=== PATIENT | female | born 1995 | race Two or more races ===

== ENCOUNTER 2025-05-14 10:54 | Emergency (ER) | payer MEDICAID, SELFPAY ==
[2025-05-14 10:55] VITALS: BMI 47.0
[2025-05-14 11:03] VITALS: BP 159/91; PULSE 55; RESP 16; TEMP 36.6; O2SAT 100
--- NOTE | 2025-05-14 11:12 | XR_ITS ---
Examination: CT abdomen and pelvis without contrast. Coronal 3-D reconstructions. Sagittal 2-D reconstructions. Date and time of exam: May 14, 2025, 1335 hours INDICATIONS: Upper and lower abdominal pain with nausea beginning today CTDI: vol (mGy): 16.6 DLP: (mGycm): 1053 Technique: Axial images of the abdomen have been obtained, 3 mm slice thickness Intravenous contrast material has not been administered. Low dose protocols were performed. One or more of the following dose reduction techniques were used; automated exposure control, adjustment of the mA and/or KV according to patient size, use of iterative reconstruction technique. Findings: No focal liver lesions No gallstones Spleen is not enlarged No pancreatic or adrenal mass No renal or ureteral calculi, no hydronephrosis Aorta is not enlarged No bowel obstruction No diverticulitis Anteverted uterus Intact urinary bladder Absent appendix IMPRESSION: No renal or ureteral calculi, no hydronephrosis Absent appendix No bowel obstruction diverticulitis or free air
--- NOTE | 2025-05-14 11:12 | PD.EDRME ---
Rapid Medical Screening Exam E Arrival date/time: 05/14/25 10:54 30-year-old female presents to the emergency department today for complaint of abdominal pain and pelvic pain Chief Complaint: Abdominal Pain Vital signs: Vital Signs Temperature 97.8 F 05/14/25 11:03 Pulse Rate 55 L 05/14/25 11:03 Respiratory Rate 16 05/14/25 11:03 Blood Pressure 159/91 H 05/14/25 11:03 Pulse Oximetry (%) 100 05/14/25 11:03 Oxygen Delivery Method Room Air 05/14/25 11:03 Vital signs reviewed by provider: Yes Exam: On exam patient well-appearing does not appear ill or toxic no acute distress Clinical Impression: Lab work and imaging obtained
[2025-05-14 11:32] LABS: Basophils # (Auto) 0.1 Thou/mm3 (0.0-0.2); Basophils % (Auto) 1 % (0-2.5); Eosinophils # (Auto) 0.1 Thou/mm3 (0.0-0.5); Eosinophils % (Auto) 1 % (0-10); Hematocrit 45.5 % (36.0-46.0); Hemoglobin 15.7 g/dL (12.0-16.0); Immature Granulocytes Auto 0.04 Thou/mm3 (0.00-0.00); Lymphocytes # (Auto) 2.6 Thou/mm3 (1.0-4.8); Lymphocytes % (Auto) 20 % (10-50); Mean Corpuscular HGB Conc 34.5 g/dl (31.0-37.0); Mean Corpuscular Hemoglobin 31.4 pg (25.0-35.0); Mean Corpuscular Volume 91 fL (80-100); Monocytes # (Auto) 0.7 Thou/mm3 (0.0-0.8); Monocytes % (Auto) 6 % (0-12); Neutrophils # (Auto) 9.3 Thou/mm3 (1.8-7.7); Neutrophils % (Auto) 73 % (37-80); Nucleated Red Blood Cell # 0.00 Thou/mm3 (0.00-0.00); Nucleated Red Blood Cell % 0 /100 WBC (0); Platelet Count 292 Thou/mm3 (140-440); RDW Standard Deviation 41.6 fL (36.4-46.3); Red Blood Count 5.00 Miln/mm3 (4.00-5.20); White Blood Count 12.8 Thou/mm3 (3.6-11.0)
[2025-05-14 12:11] LABS: Alanine Aminotransferase 15 U/L (10-49); Albumin, Serum 5.1 gm/dL (3.5-5.0); Albumin/Globulin Ratio 1.8 (1.2-2.2); Alkaline Phosphatase 75 U/L (46-116); Anion Gap 9 (7-16); Aspartate Amino Transferase 20 U/L (0-34); BUN/Creatinine Ratio 10 Ratio (12-20); Bilirubin,Total 0.5 mg/dL (0.3-1.2); Blood Urea Nitrogen 8 mg/dL (9-23); Calcium 9.2 mg/dL (8.3-10.6); Calcium (Corrected) 9.2 mg/dL (8.5-10.1); Carbon Dioxide 26.4 mMol/L (20.0-31.0); Chloride 105 mMol/L (98-107); Creatinine (Component) 0.8 mg/dL (0.6-1.3); Estimated Creatinine Clearance 138.9 mL/min (>60); Globulin 2.8 gm/dL (2.3-3.5); Glucose 109 mg/dL (74-106); Lipase 35 U/L (12-53); Osmolality,Calculated 278 (275-295); Potassium 4.7 mMol/L (3.4-5.1); Sodium 140 mMol/L (136-145); Total Protein 7.9 gm/dL (5.7-8.2); eGFR > 60 See Note
--- NOTE | 2025-05-14 12:25 | PD.EDABDPN ---
ED Abdominal Pain RME/HPI General Chief Complaint: Abdominal Pain Stated complaint: LOWER ABD PAIN X3D Time seen by provider: 05/14/25 12:09 Arrival date/time: 05/14/25 10:54 30-year-old female patient came in for evaluation regarding pelvic pain. Patient told me that she is very irregular, it is hard for her to get , for the last 3 days she have vaginal bleeding, patient also told me that she has been having blood clots. She denies any chance of . She never been . She denies any dysuria vomiting fever or other complaints. No medication was taken prior to ER visit. RME / HPI RME / HPI narrative: 05/14/25 10:54 30-year-old female presents to the emergency department today for complaint of abdominal pain and pelvic pain Exam: On exam patient well-appearing does not appear ill or toxic no acute distress Impression: Lab work and imaging obtained Related Data Previous Rx's ?Medication ?Instructions ?Recorded ibuprofen 800 mg tablet 800 mg PO Q8H PRN pain #30 tabs 05/14/25 Allergies Allergy/AdvReac Type Severity Reaction Status Date / Time No Known Allergies Allergy Verified 05/14/25 10:58 Review of Systems Review of Systems Narrative Review of Systems: Review of system reviewed and within normal limits except mentioned in HPI ED Exam Narrative Physical exam: VITAL SIGNS: Reviewed. GENERAL APPEARANCE: Alert and interactive, follows commands, no acute distress, HEAD AND FACE: Non-traumatic. ENT: PERRL, pink conjunctivitis, eyelid no trauma, Mucous membrane moist. NECK: Supple, nontender, no nuchal rigidity. CHEST: No tenderness, no crepitus, no paradoxical movement, no retractions. LUNGS: Clear, well ventilated, symmetric, no rales, no wheezing, no ronchi, no stridor, good breath sounds bilaterally. HEART: Regular rate, regular rhythm, no murmur, no gallops. ABDOMEN: Soft, positive bowel sounds, nondistended, no guarding, nontender, no rebound, no masses, RECTAL: Deferred. GENITAL: Deferred. NEUROLOGICAL: Gross motor function intact sensory function intact, Appropriate for age. MUSCULOSKELETAL: low back nontender, full range of motion. EXTREMITIES: Nontender, full range of motion. SKIN: Color pink, dry, no rash, no lacerations, no abrasions, no contusions. LYMPHATICS: Deferred. Course Quality Measures none Orders Category Date Time Status CT abdomen pelvis wo con Stat Exams 05/14/25 11:12 Completed CBC Stat Lab 05/14/25 11:17 Completed Comprehensive Metabolic Panel Stat Lab 05/14/25 11:17 Completed HCG Qualitative,Urine Stat Lab 05/14/25 12:42 Completed Lipase Stat Lab 05/14/25 11:17 Completed UA, C/S IF [Urinalysis, C/S if Indicated] Stat Lab 05/14/25 12:42 Completed Urine Culture Stat Lab 05/14/25 12:42 Received HYDROcodone/APAP 10/325 [[place] 10/325] Med 05/14/25 12:24 Discontinued 1 tab PO X1 ONE Vital Signs Vital signs: Vital Signs Temperature 97.8 F 05/14/25 11:03 Pulse Rate 55 L 05/14/25 11:03 Respiratory Rate 16 05/14/25 11:03 Blood Pressure 159/91 H 05/14/25 11:03 Pulse Oximetry (%) 100 05/14/25 11:03 Oxygen Delivery Method Room Air 05/14/25 11:03 Abdominal Pain MDM MDM Narrative MDM Narrative:: 05/14/25 10:54 30-year-old female patient came in for evaluation regarding pelvic pain. Patient told me that she is very irregular, it is hard for her to get , for the last 3 days she have vaginal bleeding, patient also told me that she has been having blood clots. She denies any chance of . She never been . She denies any dysuria vomiting fever or other complaints. No medication was taken prior to ER visit. Patient CBC showed leukocytosis 12.8 no sign of anemia. CMP unremarkable. Urinalysis hematuria no UTI CT scan of the abdomen pelvis came back unremarkable. Results discussed with the patient. Clinically patient is having dysmenorrhea otherwise unremarkable. Stable for charged home Patient data External records reviewed:: None Clinical information provided by:: none Social determinants that could affect healthcare access:: none Patient has the following chronic illnesses:: None How is presenting disease/condition affected by chronic disease/condition?: no chronic disease Evaluation data The following diagnostics were reviewed and interpreted by me:: lab results and radiology exam(s) Lab and/or radiology exams considered but not ordered:: None Interpretation Summary: See above Medications / Prescriptions Medications or Prescriptions considered but not ordered:: None Medication administrations:: Medication Administration History Discontinued Medications Hydrocodone Bitart/Acetaminophen (Hydrocodone/[place] 10/325 Tab) 1 tab PO X1 ONE Stop: 05/14/25 12:25 Last Admin: 05/14/25 13:30 Dose: 1 tab Documented By: WILNER Cano Consultations Consultation(s) initiated? (list below): No Diagnosis Differential diagnosis abdominal pain: abdominal pain and gastroenteritis Most likely diagnosis given after review of the tests above:: Dysmenorrhea Admission Indicated Admission indicated?: not indicated Admission Request Was there a request for admission?: No Disposition Plan Disposition Plan: Discharge Discharge Attestation Discharge Attestation: The patient was given an opportunity to ask questions and understood the discharge instructions. Discharge instructions specifically effects, indications for sooner follow up or return to the emergency department, and the expected course of current diagnosis. Patient condition: Stable Discharge Plan Plan Patient Disposition: HOME (Self Care) Discharge Disposition comment: Stable Prescriptions/Referrals Prescriptions/Med Rec: New ibuprofen 800 mg tablet 800 mg PO Q8H PRN (Reason: pain) Qty: 30 0RF Referrals: Jace De Leon MD [Primary Care Provider, Family Practice] - In 1 week Problem List Clinical Impression: Dysmenorrhea Patient/Caregiver Discharge Instructions Discharge Activity: activity as tolerated Education Materials: ED MENSTRUAL CRAMPING Additional Instructions: Thank you for the opportunity for serving you today. You are stable for discharged . You are advised to: Follow-up with your PCP in 1 to 2 days Return to ED for worsening of symptoms Increase oral fluids Take medication as prescribed Print Language: Martiniquais Stand Alone Forms: Di Award Info., Patient Portal Info Letter AYESHA/DEO Supervising Physician WILVER Supervising Physician: MD Pj
[2025-05-14 12:47] LABS: Collection Type, Urine Clean Catch
[2025-05-14 12:51] LABS: Bacteria,Urine 1+; Bilirubin,Urine Negative (Negative); Blood,Urine 3+ (Negative); Clarity,Urine Turbid (Clear/Hazy); Color,Urine Yellow (Lt Yel-Yel); Glucose, Urine Negative (Negative); Ketones,Urine Negative (Negative); Leukocyte Esterase,Urine Negative (Negative); Nitrite,Urine Negative (Negative); PH,Urine 6.5 (5.0-7.0); Protein,Urine 1+ (Neg - Trace); RBC,Urine 299 /hpf (0-3); Specific Gravity,Urine 1.028 (1.001-1.035); Squamous Epithelial Cell,Urine 5 /hpf (0-5); Urobilinogen,Urine Negative mg/dL (0.0-1.0); WBC,Urine 5 /hpf (0-5)
[2025-05-14 12:53] LABS: HCG Qualitative,Urine Negative
[2025-05-14 12:55] LABS: Culture Indicated,Urine Yes
[2025-05-14 14:41] VITALS: BP 150/99; PULSE 53; RESP 18; TEMP 36.6; O2SAT 99
== END 2025-05-14 15:04 | disposition home or self-care (01) ==
PROVIDERS: Emergency Provider Nurse Practitioner Primary Care; PCP Family Medicine
DX: N94.6 Dysmenorrhea, unspecified (principal)
CPT/HCPCS: 36415; 74176; 80053; 81001; 81025; 83690; 85025; 87077; 87086; 87186; 99283; A9270